=== PATIENT | male | born 1940 | race Caucasian/White ===

== ENCOUNTER → 2017-04-24 14:37 | Outpatient (CLI) | payer MEDICARE ==
[2015-10-04 20:20] VITALS: BMI 20.1
[~2017-04-24 14:37] MED LIST: ASA; ASPIRIN 81 MG E81 MG PO; BAYER CHEWABLE81 MG PO; BENICAR HCT 20-1 TA1 PO; BUPROPION HCL; CARDIZEM CD240 MG PO; CARDIZEM30 MG; CYMBALTA20 MG; CYMBALTA30 MG PO; Cardizem; Cardizem CD; Cymbalta; HCTZ; HYDROCHLOROTH12.5 M1; ISOSORBIDE MONO30 M1 PO; NORCO 10/325 TA1 TA1; NORCO 10/325 TA1 TA1 PO; Norco; PLAVIX75 MG PO; PRINIVIL10 MG PO; PROTONIX40 MG PO; WELLBUTRIN XL150 M1 PO; ZOCOR20 MG PO; ZOCOR5 MG; Zocor
== END | disposition home or self-care (01) ==
LOC: D.CT 14:37
DX: R04.2 Hemoptysis (principal)

== ENCOUNTER 2017-07-03 08:36 | Outpatient (CLI) | payer MEDICARE ==
[2015-10-04 20:20] VITALS: BMI 20.1
--- NOTE | ~2017-07-03 | HEMODYNAMI ---
PATIENT:ELISE HUNT MEDICAL RECORD: [id number] : 42 LOCATION:DPenelopeCAT ADMISSION DATE: 07/03/17 Generatedon:07/03/201711:27 Patient name: ELISE HUNT Patient #: [id number] SSN: : 1940 Date of study: 07/03/2017 Page: Of Hemodynamic Procedure Report Patient Data Patient Demographics Procedure consent was obtained First Name: ELISE Gender: Male Last Name: GILBERT : 1940 [facility] Initial: E Age: 76 year(s) Patient #: [id number] Race: Additional ID: [id number] Contact details [address]: [address] [place] [address] State: [place] City: [place] Zip code: [address] Past Medical History History of disease Date Diagnosis Comments Hypertension Allergies Allergen Reaction Date Comments Reported Sulfa drugs 01/28/2015 Iodine 01/28/2015 IV contrast dye 01/28/2015 Other allergy 07/03/2017 Iodine Admission Admission Data Admission Date: 07/03/2017 Admission Time: 8:36 Admit Source: Other Lab Results Lab Result Date: 07/03/2017 Lab Result Time: 9:10 Biochemistry Name Units Result Min Max BUN mg/dl 15 --(--*-)-- 7 18 Creatinine mg/dl 0.9 --(-*--)-- 0.6 1.3 CBC Name Units Result Min Max Hematocrit % 41.6 -*(----)-- 42 54 Hemoglobin g/dl 14.5 --(*---)-- 13.5 17.5 Procedure Procedure Types Cath Procedure Diagnostic Procedure LHC LHC w/Coronaries w/Grafts PCI Procedure PTCA PTCA Initial Miscellaneous Procedures Moderate Sedation up to 30 minutes Procedure Description Procedure Date Procedure Date: 07/03/2017 Procedure Start Time: 10:49 Procedure End Time: 11:27 Procedure Staff Name Function Randal Hartman MD Performing Physician Gray Oseguera RN Nurse Graeme Connor RT Monitor Shade De RT Scrub Procedure Data Cath Procedure Fluoroscopy Diagnostic fluoroscopy Total fluoroscopy Time: 14 time: 14 min min Diagnostic fluoroscopy Total fluoroscopy dose: dose: 395.18 mGy 395.18 mGy Contrast Material Contrast Material Type Amount (ml) Isovue 300 199 Entry Location Entry Primary Successful Side Size Upsize Upsize Entry Closure Succes sful Closure Location (Fr) 1 (Fr) 2 (Fr) Remarks Device Remarks Femoral Right 5 Fr 6 Fr Exoseal artery Short Estimated blood loss: 10 ml Diagnostic catheters Device Type Used For End Catheter Placement MULTIPACK Pigtail 5 Fr Procedure catheter MULTIPACK JL 4.0 5Fr Procedure catheter MULTIPACK 3DRC 5Fr Procedure catheter Procedure Complications No complications Procedure Medications Medication Administration Route Dosage Oxygen NC 2 l/min Heparin Flush Bag added to field 2 bags (1000units/500ml NS) 0.9% NaCl I.V. 100 ml/hr Fentanyl I.V. 50 mcg Versed I.V. 1 mg Fentanyl I.V. 50 mcg Versed I.V. 1 mg Heparin Bolus I.V. 4000 units Fentanyl I.V. 50 mcg Fentanyl I.V. 50 mcg Hemodynamics Rest HGB: 14.5 (g/dl) Heart Rate: 69 (bpm) Snapshots Pre Cath Intra NCS Post Cath Vital Signs Time Heart Resp SPO2 etCO2 NIBP (mmHg) Rhythm Pain Sedation Rate (ipm) (%) (mmHg) Status Level (bpm) 10:37:52 72 18 100 23.2 161/88(128) NSR 0 (11) 10(A) , No pain 10:42:12 69 17 100 24.7 159/82(122) NSR 0 (11) 10(A) , No pain 10:46:28 71 16 100 0.7 144/80(122) NSR 0 (11) 10(A) , No pain 10:50:42 70 19 94 0 137/76(113) NSR 0 (11) 9(A) , No pain 10:54:56 71 19 96 0 140/72(109) NSR 0 (11) 9(A) , No pain 10:59:10 70 19 100 4.4 136/75(109) NSR 0 (11) 9(A) , No pain 11:03:24 72 17 100 27.7 134/70(100) NSR 0 (11) 9(A) , No pain 11:07:36 72 19 100 0 138/75(116) NSR 0 (11) 9(A) , No pain 11:11:50 70 17 100 0 139/71(108) NSR 0 (11) 9(A) , No pain 11:16:04 74 17 100 27.7 140/75(114) NSR 0 (11) 9(A) , No pain 11:20:07 73 18 100 0 143/80(118) NSR 0 (11) 9(A) , No pain 11:24:20 82 9 100 10.4 151/88(116) NSR 0 (11) 9(A) , No pain Medications Time Medication Route Dose Verified Delivered Reason Notes Effectiveness by by 10:41:36 Oxygen NC 2 Randal Gray Per physician l/min Minnie Oseguera RN 10:41:44 Heparin Flush added 2 Randal Gray used for Bag to bags Minnie Oseguera RN procedure (1000units/500ml field NS) 10:41:54 0.9% NaCl I.V. 100 Randal Gray Per physician ml/hr Minnie Oseguera RN 10:47:26 Fentanyl I.V. 50 Randal Gray for sedation mcg Minnie Oseguera RN 10:47:36 Versed I.V. 1 mg Randal Gray for sedation Minnie Oseguera RN 10:53:02 Fentanyl I.V. 50 Randal Gray for sedation mcg Minnie Oseguera RN 10:53:07 Versed I.V. 1 mg Randal Gray for sedation Minnie Oseguera RN 10:57:44 Heparin Bolus I.V. 4000 Randal Gray for units Minnie Oseguera RN anticoagulation 11:09:49 Fentanyl I.V. 50 Randal Gray for sedation mcg Minnie Oseguera RN 11:12:55 Fentanyl I.V. 50 Randal Gray for sedation [facility] Minnie Oseguera RN Procedure Log Time Note 10:19:27 Gray Oseguera RN sent for patient. Start room use. 10:29:07 Informed consent obtained and on chart 10:29:10 Admit Source: Other 10:29:26 Diagnostic Cath status Elective 10:29:28 Time tracking: Regular hours 10:29:32 Plan of Care:Hemodynamics will remain stable., Cardiac rhythm will remain stable., Comfort level will be maintained., Respiratory function will remain adequate., Patient/ family verbilizes understanding of procedure., Procedure tolerated without complication., Recovers from procedure without complications.. 10:29:39 H&P Date Dictated: 07/02/2017 Within 30 days and on chart., H&P Addendum completed by physician on day of procedure. (MUST COMPLETE FOR ALL OUTPATIENTS). 10:30:47 Patient received from Pre/Post Procedure Room to [facility] 3 Alert and oriented. Tansferred to table in Supine position. 10:30:48 Warm blankets applied, and denise hugger turned on for patient comfort. 10:30:49 Correct patient and procedure confirmed by team. 10:30:49 ECG and BP/O2 sat monitors applied to patient. 10:36:40 Vital chart was started 10:41:36 Oxygen 2 l/min NC was administered by Gray Oseguera RN; Per physician; 10:41:44 Heparin Flush Bag (1000units/500ml NS) 2 bags added to field was administered by Gray Oseguera RN; used for procedure; 10:41:54 0.9% NaCl 100 ml/hr I.V. was administered by Gray Oseguera RN; Per physician; 10:42:19 Baseline sample Acquired. 10:42:22 Rhythm: sinus rhythm 10:42:23 Full Disclosure recording started 10:42:24 Pre-procedure instructions explained to patient. 10:42:24 Pre-op teaching completed and patient verbalized understanding. 10:42:26 Family in waiting room. 10:42:27 Patient NPO since Midnight. 10:42:34 Patient allergic to Other allergyIodine 10:42:37 Is the patient allergic to Iodine/contrast media? Yes. 10:42:38 Was the patient premedicated? Yes 10:42:38 Is patient on blood thinner?Yes 10:42:41 ACC The patient was administered the following blood thiners within the last 24 hours: ACCPlavix 10:42:45 Patient diabetic? No. 10:42:47 Previous problem with sedation/anesthesia? No ? 10:42:50 Snore? Yes 10:42:50 Sleep apnea? No 10:42:51 Deviated septum? No 10:42:52 Opens mouth fully? Yes 10:42:52 Sticks out tongue? Yes 10:42:55 Airway obstruction? Yes COPD 10:42:58 Dentures? Yes In tight 10:43:07 Pre procedure: right posterior tibial pulse 2+ Normal; easily identifiable; not easily obliterated 10:43:09 Patient pain scale 0/10 ?. 10:43:35 IV patent on arrival in left forearm with 0.9% NaCl at O. 10:44:34 Lab Result : Creatinine 0.9 mg/dl 10:44:34 Lab Result : BUN 15 mg/dl 10:44:34 Lab Result : Hemoglobin 14.5 g/dl 10:44:34 Lab Result : Hematocrit 41.6 % 10:44:37 Lab results completed and on chart. 10:44:41 Right groin area was prepped with chlora-prep and draped in sterile fashion 10:44:42 Alarms reviewed by R. N. 10:44:42 Sharps counted by scrub and verified by R.N. 10:44:45 Use device set Femoral Dx 10:44:47 ACIST Syringe (48100) opened to sterile field. 10:44:48 Medline Cath Pack ([id number]) opened to sterile field. 10:44:51 ACIST Hand Control (88524) opened to sterile field. 10:44:51 ACIST Manifold (73437) opened to sterile field. 10:44:53 Tegaderm 4 x 4 (1626W) opened to sterile field. 10:46:19 Bag Decanter (2002S) opened to sterile field. 10:46:20 PERCUTANEOUS ENTRY 19GA needle opened to sterile field. 10:46:23 DIAGNOSTIC Multipack 5Fr catheter set (CY2145) opened to sterile field. 10:46:24 DIAGNOSTIC WIRE .035 260cm J wire (784354) opened to sterile field. 10:46:25 SHEATH 5FR [place] (EEI071) opened to sterile field. 10:46:31 Physician arrived 10:46:31 --------ALL STOP TIME OUT------ 10:46:31 Final Timeout: patient, procedure, and site verified with staff and physician. All members of the team are in agreement. 10:46:33 Right groin site verified by team. 10:46:35 Physical assessment completed. ASA score P 2 - A patient with mild systemic disease as per Randal Hartman MD. 10:46:37 Sedation plan: IV Moderate Sedation Medication:Versed, Fentanyl 10:47:26 Fentanyl 50 mcg I.V. was administered by Gray Oseguera RN; for sedation; 10:47:36 Versed 1 mg I.V. was administered by Gray Oseguera RN; for sedation; 10:49:14 Procedure started. 10:49:17 Local anesthetic to right femoral artery with Lidocaine 2% by Randal Hartman MD.INITIAL ACCESS ONLY 10:49:23 A 5 Fr sheath was inserted into the Right Femoral artery 10:49:34 A MULTIPACK Pigtail 5 Fr catheter was advanced over the wire and used for Procedure. 10:49:38 LV gram done using ALFARO 10:49:40 Injector settings: Ml/sec: 10, Volume: 20, 10:49:49 EF : 50 % 10:50:25 Catheter exchanged over wire. 10:50:31 A MULTIPACK JL 4.0 5Fr catheter was advanced over the wire and used for Procedure. 10:51:17 LCA angiography performed. 10:51:53 Catheter exchanged over wire. 10:52:00 A MULTIPACK 3DRC 5Fr catheter was advanced over the wire and used for Procedure. 10:53:02 Fentanyl 50 mcg I.V. was administered by Gray Oseguera RN; for sedation; 10:53:07 Versed 1 mg I.V. was administered by Gray Oseguera RN; for sedation; 10:53:40 ALMONTE to LAD angiography performed. 10:53:56 RCA angiography performed. 10:56:04 SHEATH 6FR [place] (SUI561) opened to sterile field. 10:56:05 INFLATOR Merit BasixCompak (OE3827) opened to sterile field. 10:56:05 FIELDER XT J 300cm guide wire ([id number]) opened to sterile field. 10:56:06 GUIDE 6FR XBLAD 4.0 catheter ([id number]) opened to sterile field. 10:56:22 Zero performed for pressure channel P1 10:56:26 Zero performed for pressure channel P1 10:57:44 Heparin Bolus 4000 units I.V. was administered by Gray Oseguera RN; for anticoagulation; 10:59:22 Catheter removed. 10:59:31 Sheath upsized to a 6 Fr Short. 10:59:42 6 Fr xblad 3.5 guide catheter was inserted over the wire 11:00:54 fielder wire advanced. 11:04:22 Wire advanced across lesion. 11:05:19 The MAVERICK 1.5 X 15 balloon ([id number]) was advanced and then removed because of failure to cross lesion 11:05:21 Wire removed. 11:05:21 Guide catheter removed. 11:05:37 GUIDE 6FR EBU 4.5 catheter ([id number]) opened to sterile field. 11:05:47 6 Fr ebu 4.5 guide catheter was inserted over the wire 11:06:44 fielder wire advanced. 11:09:41 CHOICE PT Extra Support J 300cm guide wire ([id number]) opened to sterile field. 11:09:45 Wire removed. 11:09:49 Fentanyl 50 mcg I.V. was administered by Gray Oseguera RN; for sedation; 11:09:50 choice pt wire advanced. 11:10:57 Wire advanced across lesion. 11:11:13 Inflation number: 1 A MAVERICK 1.5 X 15 balloon ([id number]) was prepped and advanced across the 1st Diag, then inflated to 9 RONALD for 0:10 (min:sec). 11:12:27 Balloon removed over the wire. 11:12:55 Fentanyl 50 mcg I.V. was administered by Gray Oseguera RN; for sedation; 11:14:06 Inflation number: 2 A EUPHORA 1.5 x 15 Balloon ([id number]) was prepped and advanced across the 1st Diag, then inflated to 9 RONALD for 0:10 (min:sec). 11:14:16 Inflation number: 3 The EUPHORA 1.5 x 15 Balloon ([id number]) was reinflated across the 1st Diag, to 9 RONALD for 0:10 (min:sec). 11:14:47 Inflation number: 4 The EUPHORA 1.5 x 15 Balloon ([id number]) was reinflated across the 1st Diag, to 13 RONALD for 0:10 (min:sec). 11:15:23 Balloon removed over the wire. 11:15:23 Wire removed. 11:15:27 Guide catheter removed. 11:15:40 EXOSEAL 6Fr (EX600) opened to sterile field. 11:16:06 Sheath removed intact; hemostasis achieved with Exoseal to the Right Femoral artery. 11:16:08 Procedure ended.(Physican Out) 11:17:12 Fluoroscopy time 14.00 minutes. 11:17:20 Flurop Dose total: 395.18 11:17:20 Fluoroscopy dose: 395.18 mGy 11:17:24 Contrast amount:Isovue 300 199ml. 11:17:25 Sharps counted by scrub and verified by R.N. 11:17:27 Insertion/operative site no bleeding no hematoma. 11:17:29 Post-op/insertion site Right Femoral artery dressed using a 4 x 4 and Tegaderm. 11:17:33 Post right femoral artery:stable, soft, clean and dry 11:19:34 Post Procedure Pulses reassessed and unchanged 11:19:38 Post-procedure physical assessment completed. ASA score P 2 - A patient with mild systemic disease as per Randal Hartman MD. 11:19:40 Post procedure rhythm: unchanged. 11:19:42 Estimated blood loss: 10 ml 11:19:43 Post procedure instruction explained to patient.Patient verbalizes understanding. 11:19:43 Patient needs reinforcement of post procedure teaching. 11:19:59 Procedure type changed to Cath procedure, Diagnostic procedure, LHC, LHC w/Coronaries w/Grafts, PCI procedure, PTCA, PTCA Initial, Miscellaneous Procedures, Moderate Sedation up to 30 minutes 11:22:49 FEMSTOP Gold ([id number]) opened to sterile field. 11:23:07 Femstop placed over the right femoral artery at 180 mmHg. Hemostasis achieved. 11:27:06 Procedure and supply charges have been captured, reviewed, submitted and are correct. 11:27:08 Procedure Complication : No complications 11:27:10 Vital chart was stopped 11:27:10 See physician's report for complete and final results. 11:27:13 Report given to Pre/Post Procedure Room. 11:27:15 Patient transfered to Pre/Post Procedure Room with Stretcher. 11:27:16 Procedure ended. 11:27:16 Full Disclosure recording stopped 11:27:20 End room use (Document Last) Intervention Summary Intervention Notes Time ActionType Lesion and Equipment Action# Pressure Duration Attributes Used 11:05:19 Discard MAVERICK 1.5 Balloon X 15 balloon ([id number]) 11:11:13 Inflate 1st Diag MAVERICK 1.5 1 9 00:10 balloon X 15 balloon ([id number]) 11:14:06 Inflate 1st Diag EUPHORA 1.5 2 9 00:10 balloon x 15 Balloon ([id number]) 11:14:16 Reinflate 1st Diag EUPHORA 1.5 3 9 00:10 balloon x 15 Balloon ([id number]) 11:14:47 Reinflate 1st Diag EUPHORA 1.5 4 13 00:10 balloon x 15 Balloon ([id number]) Device Usage Item Name Manufacture Quantity Catalog Number Hospital Part Current Min imal Lot# / Charge Number Stock Stock Serial# Code ACIST Acist 1 21143 482886 866962 150936 20 Syringe Medical (14877) Systems Bvents Medline Cath Cardinal 1 [id number] 235656 74344 069610 5 Pack Health ([id number]) ACIST Hand Acist 1 55913 834944 592986 521768 5 Control Medical (96811) Systems Inc ACIST Acist 1 93644 643596 101019 068629 5 Manifold Medical (53449) Systems Inc Tegaderm 4 x 3M 1 1626W 104853 499310 594294 5 4 (1626W) Bag Decanter Microtek 1 2002S 068015 51931 813831 5 (2002S) Medical Inc. PERCUTANEOUS Cook Medical 1 F19667 916104 968269 5 ENTRY 19GA needle DIAGNOSTIC Cardinal 1 GB2653 876074 14562 762254 30 Multipack Health 5Fr catheter set (KG2240) DIAGNOSTIC St Cornelio 1 391793 580727 593188 393123 30 WIRE .035 260cm J wire (575578) SHEATH 5FR Terumo 1 SKM602 361249 449060 749280 40 [place] (QRI717) MULTIPACK Cardinal 1 487611 5 Pigtail 5 Fr Health catheter MULTIPACK JL Cardinal 1 602824 5 4.0 5Fr Health catheter MULTIPACK Cardinal 1 512411 5 3DRC 5Fr Health catheter SHEATH 6FR Terumo 1 ZFP866 053980 581646 289990 40 [place] (DNQ881) INFLATOR Merit 1 IO3794 222859 525788 081364 15 Heyzap BasixCompak (TT9608) FIELDER XT J Bales 1 [id number] 360841 419443 282406 5 300cm guide Vascular wire ([id number]) GUIDE 6FR Cardinal 1 60289678 407644 140558 186530 3 XBLAD 4.0 Health catheter (09310342) MAVERICK 1.5 [place] 1 [id number] 275510 806612 307397 1 [id number] X 15 balloon Scientific ([id number]) GUIDE 6FR Medtronic 1 [id number] 253804 10930 931280 0 EBU 4.5 catheter (MF5ZBR55) CHOICE PT [place] 1 [id number] 540227 971852 310562 5 Extra Scientific Support J 300cm guide wire ([id number]) EUPHORA 1.5 Medtronic 1 [id number] 507230 266019 907882 5 [id number] x 15 Balloon ([id number]) EXOSEAL 6Fr Cardinal 1 EX600 055824 899447 796548 10 (EX600) [facility] FEMST Gold [facility] Cornelio 1 B50444 059636 592053 242482 5 (S38955) Signature Audit Swink Stage Time Signature Unsigned Intra-Procedure 07/03/2017 Graeme Connor 11:27:34 AM RT(R) Signatures Monitor : Graeme Connor RT Signature : Date : Time : [id number] [place] [address]
[~2017-07-03 08:36] MED LIST changes: -PROTONIX40 MG PO
[2017-07-03 09:15] LABS: BASOPHILS 0.1 % (0-2); EOSINOPHILS 0.7 % (0-7); HEMATOCRIT 41.6 % (42.0-54.0); HEMOGLOBIN 14.5 g/dL (13.5-17.5); IMMATURE GRANULOCYTES 0.1 % (0-5); LYMPHOCYTES 10.7 % (15-50); MCH 32.2 pg (26.0-34.0); MCHC 34.9 g/dL (31.0-37.0); MCV 92.4 fL (80.0-100.0); MEAN PLATELET VOLUME 9.6 fL (7.4-10.4); MONOCYTES 2.3 % (2-11); NEUTROPHILS 86.1 % (40-80); PLATELET COUNT 265 10x3/uL (130-400); RDW 13.8 % (11.5-14.5); WBC 8.2 10x3/uL (4.8-10.8)
[2017-07-03] MEDS ORDERED: PROTONIX40 MG PO (09:18)
[2017-07-03 09:27] LABS: CALC OSMOLALITY 264 mosm/kg (275-300); CALCIUM 9.7 mg/dL (8.5-10.1); CARBON DIOXIDE 24.1 mmol/L (21.0-32.0); CHLORIDE - SERUM 98 mmol/L (98-107); CREATININE - SERUM 0.9 mg/dL (0.6-1.3); GLUCOSE 120 mg/dL (74-106); POTASSIUM - SERUM 3.9 mmol/L (3.5-5.1); SODIUM 131 mmol/L (136-145); UREA NITROGEN 15 mg/dL (7-18); eGFR NON AFRICAN AMERICAN 87 mL/min (90-120)
--- NOTE | 2017-07-03 11:50 | NUR ---
RIGHT GROIN 6F EXOSEAL CDI, NO BLEEDING OR HEMATOMA NOTED. FEMSTOP IN PLACE. ROOM AIR, NO RESP DISTRESS. NO C/O PAIN AT THIS TIME. VSS. FAMILY AT BEDSIDE, CALL LIGHT WITHIN REACH.
--- NOTE | 2017-07-03 12:20 | NUR ---
RIGHT GROIN 6F EXOSEAL CDI, NO BLEEDING OR HEMATOMA NOTED. ROOM AIR, NO RESP DISTRESS. C/O PAIN TO BACK AND RIGHT LEG. NOTIFED DR. AYALA.
--- NOTE | 2017-07-03 12:37 | NUR ---
NORCO 10 GIVEN PER MAR AND PT REQUEST. FEMSTOP PRESSURE DECREASED BY 40. NO BLEEDING NOTED.
--- NOTE | 2017-07-03 12:55 | NUR ---
FEMSTOP PRESSURE DECREASED BY 50. NO BLEEDING NOTED. VSS. WILL CONTINUE TO MONITOR CLOSELY.
--- NOTE | 2017-07-03 13:25 | NUR ---
REMAINING FEMSTOP PRESSURE REMOVED, DRESSING PLACED TO SITE. SANDWICH TRAY AND DRINK GIVEN, NO C/O NAUSEA. VSS. NO C/O PAIN. CALL LIGHT WITHIN REACH.
--- NOTE | 2017-07-03 15:00 | NUR ---
HOB ELEVATED 30 DEGREES. RIGHT GROIN 6F EXOSEAL CDI, NO BLEEDING NOTED. VSS. WILL CONTINUE TO MONITOR CLOSELY.
--- NOTE | 2017-07-03 15:15 | NUR ---
LEFT AC PIV D/C'D WITH CATHETER INTACT, BAND AID TO SITE. UP TO BEDSIDE TO GET DRESSED.
--- NOTE | 2017-07-03 15:22 | NUR ---
DISCHARGE INSTRUCTIONS GIVEN, VERBALIZED UNDERSTANDING.
--- NOTE | 2017-07-03 15:35 | NUR ---
TAKEN OUT VIA WHEELCHAIR BY CATH ORTHOPEDIC TECH. LEFT FACILITY WITH FAMILY AND ALL PERSONAL BELONGINGS.
--- NOTE | 2017-07-10 15:46 | OP ---
PATIENT NAME: ELISE HUNT MEDICAL RECORD: [id number] :42 LOCATION:D.CAT ADMISSION DATE: SURGEON: SCARLETT AYALA MD DATE OF OPERATION: 07/03/2017 PROCEDURES: 1. PTCA, LAD diagonal. 2. Left heart catheterization. 3. Selective coronary angiography. 4. Vein graft angiography. 5. ALMONTE angiography. INDICATION: Angina and coronary artery disease. PROCEDURE IN DETAIL: After informed consent was obtained and after a detailed explanation of the risks, benefits as well as alternative therapies, the patient elected to proceed with angiogram and angioplasty. The right femoral area was prepped and draped in normal sterile fashion. The right femoral artery was cannulated via modified Seldinger technique with placement of a 6-Cymro sheath. All catheters exchanged through this sheath. FINDINGS: The left ventriculogram was performed in standard 30-degree ALFARO view, reveals preserved cardiac wall motion, ejection fraction 50%. SELECTIVE CORONARY ANGIOGRAPHY: 1. Left main showed no significant angiographic disease. 2. Left anterior descending is totally occluded in the mid vessel, there is a LAD diagonal system that was previously grafted, but the graft was closed. This has a 99% stenosis at the ostium of this diagonal system. This is a relatively small diagonal system. 3. Left circumflex has mild irregularities, but no flow-limiting stenosis. 4. Right coronary artery has mild irregularities, but no flow-limiting stenosis. Previously placed stent is widely patent. PTCA OF THE LAD DIAGONAL: We were able to traverse this with a choice PT wire. Ballooning was undertaken with a 1.5 balloon. Result was 20% residual stenosis. OVERALL IMPRESSION: Successful percutaneous transluminal coronary angioplasty of the left anterior descending diagonal going from 99% initial stenosis to 20% residual stenosis. TRANSINT:[id number] Voice Confirmation ID: [id number] DOCUMENT ID: [id number] SCARLETT AYALA MD at 1546 CC: [id number] DICTATION DATE: 07/03/17 1121 RADIAL ARM SAW OPERATOR: 07/03/17 1155 DEP CLI 07/03/17 [place] [address]
== END 2017-07-03 15:35 | disposition home or self-care (01) ==
LOC: D.CATH 08:36
PROVIDERS: Internal Medicine Interventional Cardiology
DX: I25.119 Atherosclerotic heart disease of native coronary artery with unspecified angina pectoris (principal); F17.200 Nicotine dependence, unspecified, uncomplicated; I10 Essential (primary) hypertension; E78.5 Hyperlipidemia, unspecified; Z01.812 Encounter for preprocedural laboratory examination

== ENCOUNTER 2017-09-13 16:17 | Inpatient (IN) | payer MEDICARE ==
--- NOTE | ~2017-09-13 | EC ---
PATIENT:ELISE HUNT DATE OF SERVICE: 09/13/17 SEX: M MEDICAL RECORD: [id number] DATE OF : 42 LOCATION:D.M2 D.212 AGE OF PATIENT: 77 ADMISSION DATE: 09/13/17 REFERRING PHYSICIAN: INTERPRETING PHYSICIAN: MILDRED GUPTA MD ECHOCARDIOGRAM REPORT ECHO CHARGES 4 ECHO COMPLETE CLINICAL DIAGNOSIS: ST ELAVATION, HX CAD/CABG/STENTS ECHOCARDIOGRAPHIC MEASUREMENTS (adult normal given) AC root (d.<3.7cm) 3.6 cm LV Septum d (<1.2 cm> 2.2 cm Valve Excursion 1.9 cm LV Septum (systole) 2.8 cm Left Atria (s.<4.0cm> 3.8 cm LVPW d(<1.2cm) 2.1 cm RV (d.<2.3cm) 4.2 cm LVPW (sytole) 2.6 cm LV diastole(<5.6CM) 3.4 cm MV E-F(>70mm/sec) cm LV systole 1.3 cm LVOT Diameter 2.0 cm MV exc.(>10mm) cm Est.ejection fraction (50-75%) % Pericardial Effusion N DOPPLER: LVIT cm/sec A 105 cm/sec E 70.0 cm/sec LA cm/sec RVSP 26 mmHg LVOT 197 cm/sec AOP1/2T m/s Asc. Ao 194 cm/sec RVOT 146 cm/sec RA cm/sec PA 152 cm/sec AV Gradient Peak 15.05mmHg AV Mean 8.11 mmHg AV Area 2.9 cm MV Gradient Peak 6.99 mmHg MV Mean 2.26 mmHg MV Area cm COMMENTS: Agricultural Equipment Test Engineer: Margarita MELARA Mechanic Driver: 3 Dr. Garcia TAPE# DATE OF SERVICE: 09/15/2017 PROCEDURE: Transthoracic echocardiogram. FINDINGS: 1. Left ventricle is demonstrating asymmetric septal hypertrophy consistent with hypertrophic obstructive cardiomyopathy. The septal distance appears to be approximately 2.5 to 3 cm. 2. The left atrium is normal size, normal function. 3. The aortic valve is normal. ECHOCARDIOGRAM REPORT [id number] ELISE HUNT 4. The mitral valve shows chordal systolic anterior motion consistent with HOCM. 5. The tricuspid valve has mild tricuspid regurgitation. 6. The right ventricle is dilated. 7. The right atrium is dilated. IMPRESSION: The patient has evidence of hypertrophic obstructive cardiomyopathy TRANSINT:[id number] Voice Confirmation ID: [id number] DOCUMENT ID: [id number] MILDRED GUPTA MD at 1214 CC: [id number] DICTATION DATE: 09/16/17 1150 OPERATIONS CONSULTANT: 09/16/17 1200 DIS IN 09/15/17 [place] [id number] [place] [id number]
--- NOTE | ~2017-09-13 | EC ---
PATIENT:ELISE HUNT DATE OF SERVICE: 09/13/17 SEX: M MEDICAL RECORD: [id number] DATE OF : 42 LOCATION:D.M2 D.212 AGE OF PATIENT: 77 ADMISSION DATE: 09/13/17 REFERRING PHYSICIAN: INTERPRETING PHYSICIAN: HUDSON OHARA MD ECHOCARDIOGRAM REPORT ECHO CHARGES 4 ECHO COMPLETE CLINICAL DIAGNOSIS: ST ELAVATION, HX CAD/CABG/STENTS ECHOCARDIOGRAPHIC MEASUREMENTS (adult normal given) AC root (d.<3.7cm) 3.6 cm LV Septum d (<1.2 cm> 2.2 cm Valve Excursion 1.9 cm LV Septum (systole) 2.8 cm Left Atria (s.<4.0cm> 3.8 cm LVPW d(<1.2cm) 2.1 cm RV (d.<2.3cm) 4.2 cm LVPW (sytole) 2.6 cm LV diastole(<5.6CM) 3.4 cm MV E-F(>70mm/sec) cm LV systole 1.3 cm LVOT Diameter 2.0 cm MV exc.(>10mm) cm Est.ejection fraction (50-75%) % Pericardial Effusion N DOPPLER: LVIT cm/sec A 105 cm/sec E 70.0 cm/sec LA cm/sec RVSP 26 mmHg LVOT 197 cm/sec AOP1/2T m/s Asc. Ao 194 cm/sec RVOT 146 cm/sec RA cm/sec PA 152 cm/sec AV Gradient Peak 15.05mmHg AV Mean 8.11 mmHg AV Area 2.9 cm MV Gradient Peak 6.99 mmHg MV Mean 2.26 mmHg MV Area cm COMMENTS: Pump Assembler: 2 LISA MELARA Public Works Manager: 3 Dr. Garcia TAPE# DATE OF SERVICE: 09/14/2017 Adequate 2D echo, color flow and spectral Doppler, and M-mode. LVH is present. LV internal dimension is normal. Wall motion is normal. EF is greater than 55%. Aortic valve is tricuspid. No stenosis by Doppler interrogation. The left atrium is normal at 3.8 cm. Mitral valve shows no prolapse. Trace MR. Right-sided chamber is grossly normal. Trace TR. TRANSINT:[id number] Voice Confirmation ID: [id number] DOCUMENT ID: [id number] ECHOCARDIOGRAM REPORT [id number] ELISE HUNT,HUDSON Beyer MD at 0919 CC: [id number] DICTATION DATE: 09/14/17 142 PROPERTY PORTFOLIO OFFICER: 09/14/17 2330 DIS IN 09/15/17 [facility] [address] [facility] [place] [address]
--- NOTE | ~2017-09-13 | CN ---
PATIENT NAME:ELISE HUNT MEDICAL RECORD: [id number] : 42 LOCATION:[facility] D.2121 ADMIT DATE: 09/13/17 ACCOUNT: [id number] CONSULTING PHYSICIAN: HUDSON OHARA MD REFERRING PHYSICIAN: ALEX WETZEL MD DATE OF CONSULTATION: 09/14/2017 HISTORY OF PRESENT ILLNESS: A 77-year-old gentleman with a history of coronary artery disease, status post stenting approximately a month ago presents with about a month history of weakness and fatigue culminating in a ruma syncopal episode yesterday. He has had poor p.o. intake, chronic diarrhea, and nausea. He had a ruma syncopal episode at [place], had rarely somewhat atypical pain with this. ECG is without acute change. Cardiac enzymes are negative. He is hypokalemic and hyponatremic. We are seeing him for cardiovascular standpoint. PAST MEDICAL HISTORY: Includes: 1. History of coronary artery disease as described above. 2. Hyperlipidemia. 3. Gastroesophageal reflux disease. MEDICATIONS: Include Protonix 40 every day, potassium 10 every day, simvastatin 20 every day, lisinopril 20 every day, Plavix 75 every day. ALLERGIES: CONTRAST DYE, SULFA. SOCIAL HISTORY: Nonsmoker and nondrinker. Easily able to take care of his ADLs. No set exercise program. REVIEW OF SYSTEMS: The patient reports easy bruising but reports no swollen glands. The patient reports no fever, no night sweats, no significant weight gain, no significant weight loss. No significant exercise tolerance. The patient reports no dry eyes, no irritation, no vision change. Patient reports no difficulty hearing and no ear pain. Patient reports no frequent nose bleeds or nose and sinus problems. Patient reports on arm pain on exertion. No shortness of breath while lying down. No history of heart murmur. Patient reports no cough, no wheezing or coughing up blood. Patient reports no abdominal pain, no vomiting. Normal appetite. No diarrhea and not vomiting blood. No nausea and no constipation. Patient reports no incontinence. No difficulty urinating. No hematuria. No increased frequency. Patient reports no muscle aches. No weakness, no arthralgias, no back pain. No swelling of the extremities. Patient reports no abnormal mole, no jaundice, no rashes. Reports no loss of consciousness. No weakness and no numbness. No seizures, dizziness, or headaches. The patient reports no depression, no sleep disturbance, feeling safe in a relationship and no alcohol abuse. Patient reports on fatigue. Reports no runny nose or sinus pressure. No itching, no hives, and no frequent sneezing. PHYSICAL EXAMINATION: GENERAL: Somewhat of a chronically ill-appearing gentleman in no acute distress. VITAL SIGNS: Blood pressure 101/61, pulse 71 and regular. HEENT: Normocephalic, atraumatic. NECK: No JVD or bruit. HEART: Regular. LUNGS: Good air excursion. CONSULT REPORT [id number] ELISE HUNT ABDOMEN: Soft, nontender. EXTREMITIES: Pulses 2+. No edema. NEUROLOGIC: Grossly intact. IMPRESSION: Ruma syncope. This does not sound like a cardiovascular event. We will check echocardiographic studies to make sure he does not have the substrate for malignant arrhythmias. Carotid Dopplers have been ordered. Thank you for the consultation. TRANSINT:[id number] Voice Confirmation ID: [id number] DOCUMENT ID: [id number] HUDSON OHARA MD at 0919 CC: [id number] DICTATION DATE: 09/14/17 0941 OUTSOLE BEVELER: 09/14/17 1221 DIS IN 09/15/17 [id number] [place] [address]
[~2017-09-13 16:17] MED LIST changes: +PROTONIX40 MG PO
[2017-09-13 17:05] LABS: BASOPHILS 0.3 % (0-2); EOSINOPHILS 11.5 % (0-7); HEMATOCRIT 34.1 % (42.0-54.0); HEMOGLOBIN 12.3 g/dL (13.5-17.5); IMMATURE GRANULOCYTES 0.2 % (0-5); LYMPHOCYTES 20.3 % (15-50); MCH 32.7 pg (26.0-34.0); MCHC 36.1 g/dL (31.0-37.0); MCV 90.7 fL (80.0-100.0); MEAN PLATELET VOLUME 10.1 fL (7.4-10.4); MONOCYTES 11.8 % (2-11); NEUTROPHILS 55.9 % (40-80); RBC 3.76 10x6/uL (4.20-6.10); WBC 6.6 10x3/uL (4.8-10.8)
[2017-09-13 17:17] LABS: PLATELET COUNT 204 10x3/uL (130-400)
[2017-09-13 17:40] LABS: ALKALINE PHOSPHATASE 57 U/L (46-116); ALT (SGPT) 15 U/L (10-68); BILIRUBIN - TOTAL 0.23 mg/dL (0.2-1.3); CALC OSMOLALITY 242 mosm/kg (275-300); CALCIUM 8.2 mg/dL (8.5-10.1); CARBON DIOXIDE 26.3 mmol/L (21.0-32.0); CHLORIDE - SERUM 89 mmol/L (98-107); CKMB 3.2 U/L (0.0-3.6); CREATINE KINASE 104 UL (21-232); CREATININE - SERUM 0.7 mg/dL (0.6-1.3); GLUCOSE 98 mg/dL (74-106); PRO BNP 942 pg/mL (0-450); PROTEIN - SERUM 5.8 g/dL (6.4-8.2); SODIUM 122 mmol/L (136-145); TROPONIN-I 0.023 ng/mL (0.000-0.060); UREA NITROGEN 4 mg/dL (7-18); eGFR NON AFRICAN AMERICAN > 90 mL/min (90-120)
[2017-09-13 17:45] LABS: POTASSIUM - SERUM 2.6 mmol/L (3.5-5.1)
[2017-09-13 18:02] LABS: INR 1.13 (0.85-1.17); PROTIME 14.1 SECONDS (11.6-15.0)
[2017-09-13 18:43] LABS: APPEARANCE CLEAR (CLEAR); BILIRUBIN NEGATIVE (NEGATIVE); COLOR YELLOW (YELLOW); GLUCOSE NEGATIVE (NEGATIVE); KETONE NEGATIVE (NEGATIVE); NITRITE NEGATIVE (NEGATIVE); PROTEIN NEGATIVE (NEGATIVE); UROBILINOGEN NORMAL (NORMAL)
[2017-09-13 22:02] VITALS: BP 118/55
[2017-09-14] VITALS (7 sets, daily range): BP systolic 91–147; BP diastolic 45–63; BMI 19.4
[2017-09-14] MEDS ORDERED: MEGACE400 MG/10 PO (05:32)
[2017-09-14] MEDS ORDERED: POTASSIUM CHLO10 ME1 PO (05:32)
[2017-09-14 07:17] LABS: BASOPHILS 0.7 % (0-2); EOSINOPHILS 15.5 % (0-7); HEMATOCRIT 37.2 % (42.0-54.0); HEMOGLOBIN 13.4 g/dL (13.5-17.5); IMMATURE GRANULOCYTES 0.3 % (0-5); LYMPHOCYTES 24.2 % (15-50); MCH 32.9 pg (26.0-34.0); MCV 91.4 fL (80.0-100.0); MEAN PLATELET VOLUME 9.9 fL (7.4-10.4); NEUTROPHILS 49.3 % (40-80); PLATELET COUNT 217 10x3/uL (130-400); RBC 4.07 10x6/uL (4.20-6.10); RDW 12.2 % (11.5-14.5); WBC 7.1 10x3/uL (4.8-10.8)
[2017-09-14 07:27] LABS: CALC OSMOLALITY 256 mosm/kg (275-300); CALCIUM 8.3 mg/dL (8.5-10.1); CARBON DIOXIDE 23.8 mmol/L (21.0-32.0); CHLORIDE - SERUM 96 mmol/L (98-107); CREATININE - SERUM 0.7 mg/dL (0.6-1.3); GLUCOSE 87 mg/dL (74-106); SODIUM 130 mmol/L (136-145); UREA NITROGEN 5 mg/dL (7-18); eGFR NON AFRICAN AMERICAN > 90 mL/min (90-120)
[2017-09-14 07:38] LABS: POTASSIUM - SERUM 3.2 mmol/L (3.5-5.1)
[2017-09-14 17:30] LABS: MAGNESIUM - SERUM 1.9 mg/dL (1.8-2.4)
[2017-09-14 17:32] LABS: POTASSIUM - SERUM 3.8 mmol/L (3.5-5.1)
[2017-09-15 00:47] VITALS: BP 124/67
[2017-09-15 06:44] VITALS: BP 117/71
[2017-09-15 08:11] VITALS: BP 161/89
[2017-09-15 08:49] LABS: BASOPHILS 0.8 % (0-2); EOSINOPHILS 25.3 % (0-7); HEMATOCRIT 33.7 % (42.0-54.0); HEMOGLOBIN 11.8 g/dL (13.5-17.5); IMMATURE GRANULOCYTES 0.2 % (0-5); LYMPHOCYTES 20.1 % (15-50); MEAN PLATELET VOLUME 10.6 fL (7.4-10.4); MONOCYTES 9.8 % (2-11); NEUTROPHILS 43.8 % (40-80); PLATELET COUNT 183 10x3/uL (130-400); RBC 3.58 10x6/uL (4.20-6.10); RDW 12.7 % (11.5-14.5); WBC 6.1 10x3/uL (4.8-10.8)
[2017-09-15 08:51] LABS: MCV 94.1 fL (80.0-100.0)
[2017-09-15 09:02] LABS: ALBUMIN 2.7 g/dL (3.4-5.0); ALKALINE PHOSPHATASE 49 U/L (46-116); ALT (SGPT) 15 U/L (10-68); CALC OSMOLALITY 258 mosm/kg (275-300); CALCIUM 7.9 mg/dL (8.5-10.1); CARBON DIOXIDE 23.6 mmol/L (21.0-32.0); CHLORIDE - SERUM 100 mmol/L (98-107); CREATININE - SERUM 0.6 mg/dL (0.6-1.3); GLUCOSE 86 mg/dL (74-106); POTASSIUM - SERUM 3.8 mmol/L (3.5-5.1); PROTEIN - SERUM 5.1 g/dL (6.4-8.2); SODIUM 131 mmol/L (136-145); UREA NITROGEN 4 mg/dL (7-18); eGFR NON AFRICAN AMERICAN > 90 mL/min (90-120)
[2017-09-15 09:05] LABS: BILIRUBIN - TOTAL 0.08 mg/dL (0.2-1.3)
[2017-09-15 11:26] VITALS: BP 156/84
[2017-09-15] MEDS ORDERED: THERAGRAN M [BK1 TAB PO (11:46)
[2017-09-15] MEDS ORDERED: ATIVAN1 MG PO (13:20)
[2017-09-15] MEDS ORDERED: NICODERM C1 PATCH .1 TRANSDERM (13:20)
== END 2017-09-15 14:09 | disposition home or self-care (01) | DRG 312 ==
LOC: D.ER 16:17 → D.M2 21:03
PROVIDERS: Emergency Medicine; Internal Medicine Nephrology; Nurse Practitioner Family
DX: R55 Syncope and collapse (principal); E87.1 Hypo-osmolality and hyponatremia; E44.0 Moderate protein-calorie malnutrition; Z68.1 Body mass index [BMI] 19.9 or less, adult; I25.10 Atherosclerotic heart disease of native coronary artery without angina pectoris; K21.9 Gastro-esophageal reflux disease without esophagitis; E78.5 Hyperlipidemia, unspecified; I10 Essential (primary) hypertension; J44.9 Chronic obstructive pulmonary disease, unspecified; R19.7 Diarrhea, unspecified; E83.42 Hypomagnesemia; E87.6 Hypokalemia; G30.0 Alzheimer's disease with early onset; F02.80 Dementia in other diseases classified elsewhere, unspecified severity, without behavioral disturbance, psychotic disturbance, mood disturbance, and anxiety; F10.10 Alcohol abuse, uncomplicated; Z95.5 Presence of coronary angioplasty implant and graft; Z95.1 Presence of aortocoronary bypass graft; Z72.0 Tobacco use

== ENCOUNTER 2018-03-20 12:48 | Observation (INO) | payer MEDICARE ==
[~2018-03-20] VITALS: Ht 175.3 cm; Wt 61.7 kg
--- NOTE | ~2018-03-20 | CN ---
PATIENT NAME:ELISE HUNT MEDICAL RECORD: [id number] : 42 LOCATION:[facility] D.2138 ADMIT DATE: 03/20/18 ACCOUNT: [id number] CONSULTING PHYSICIAN: SCARLETT AYALA MD REFERRING PHYSICIAN: BRADLY THOMASON MD DATE OF CONSULTATION: 03/20/2018 ADMITTING DIAGNOSES: 1. Chest pain. 2. Shortness of breath. 3. Coronary artery disease. 4. Status post coronary bypass graft surgery. 5. Hypertension. 6. Hyperlipidemia. HISTORY OF PRESENT ILLNESS: Mr. Hunt presents with multiple complaints, generalized weakness, but he does have shortness of breath, some episodes of chest pain. The chest pain are atypical. He has fleeting sharp chest pain that lasts for only a second and goes from the right to the left nipple. He has been more short of breath lately, but this has been a progressive thing. We did the last angioplasty in June, which was a PTCA of a small branch vessel. His shortness of breath was persistent even after this. His EKG is normal. PHYSICAL EXAMINATION: GENERAL APPEARANCE: Well-nourished, well-developed, appears stated age. Level of distress, comfortable. PSYCHIATRIC: Mental status, alert, normal affect. Orientation, oriented to time, place and person. EYES: Lids and conjunctiva, noninjected. No discharge, no pallor. ENT: Lips, teeth, gums, normal dentition. Oropharynx, no cyanosis, no pallor. NECK: Carotid arteries, bilateral normal upstroke, no bruits, no thrills. JUGULAR VEINS: No jugular venous pressure or distention. CERVICAL LYMPH NODES: Nontender, nonenlarged. THYROID: Not enlarged. Nontender. No nodules. LUNGS: Respiratory effort, unlabored. CHEST: Normal curvature. No thoracic deformity. No chest wall tenderness. Percussion, resonant. Auscultation, clear. No wheezes, no rales, no rhonchi. CARDIOVASCULAR: Precordial exam, nondisplaced. No heaves or pericardial thrills. Rate and rhythm, regular. Heart sounds, normal S1, normal S2. No S3, no gallop, no rub. Systolic murmur, not heard. Diastolic murmur, not heard. EXTREMITIES: No cyanosis, no edema. Peripheral pulses, full and equal in all extremities, except as noted. No bruits appreciated. ABDOMEN: Soft, nondistended. Normal aorta. No bruit. Nontender. No masses. Liver, nontender, no hepatomegaly. Spleen, nontender, no splenomegaly. MUSCULOSKELETAL: No joint tenderness. No joint swelling. No erythema. NEUROLOGICAL: Normal gait, normal strength, normal tone. SKIN: Warm and dry. OVERALL IMPRESSION: Shortness of breath, unchanged after his last angioplasty. Chest pain that is totally atypical from a cardiac standpoint at this point. With a normal EKG at this point, no other cardiac workup or treatment is necessary. TRANSINT:[id number] Voice Confirmation ID: [id number] DOCUMENT ID: [id number] CONSULT REPORT [id number] ELISE HUNT, SCARLETT GRACE at 1950 CC: [id number] DICTATION DATE: 03/20/18 1534 PORCELAIN TURNER: 03/20/18 1626 DIS IN 03/21/18 [id number] [place] [address]
[~2018-03-20 12:48] MED LIST changes: +ATIVAN1 MG PO; +MEGACE400 MG/10 PO; +NICODERM C1 PATCH .1 TRANSDERM; +POTASSIUM CHLO10 ME1 PO; +THERAGRAN M [BK1 TAB PO
[2018-03-20] MEDS ORDERED: MYSOLINE250 MG PO (13:21)
[2018-03-20 13:30] VITALS: BP 105/56
[2018-03-20 13:48] LABS: BASOPHILS 0.2 % (0-2); EOSINOPHILS 2.9 % (0-7); HEMATOCRIT 33.6 % (42.0-54.0); IMMATURE GRANULOCYTES 0.1 % (0-5); LYMPHOCYTES 10.2 % (15-50); MCHC 35.7 g/dL (31.0-37.0); MCV 92.3 fL (80.0-100.0); MEAN PLATELET VOLUME 9.4 fL (7.4-10.4); MONOCYTES 5.7 % (2-11); NEUTROPHILS 80.9 % (40-80); PLATELET COUNT 217 10x3/uL (130-400); RBC 3.64 10x6/uL (4.20-6.10); RDW 13.4 % (11.5-14.5); WBC 10.3 10x3/uL (4.8-10.8)
[2018-03-20 14:14] LABS: ALBUMIN 3.1 g/dL (3.4-5.0); ALKALINE PHOSPHATASE 50 U/L (46-116); ALT (SGPT) 17 U/L (10-68); BILIRUBIN - TOTAL 0.25 mg/dL (0.2-1.3); CALC OSMOLALITY 268 mosm/kg (275-300); CALCIUM 8.3 mg/dL (8.5-10.1); CARBON DIOXIDE 22.1 mmol/L (21.0-32.0); CHLORIDE - SERUM 103 mmol/L (98-107); GLUCOSE 76 mg/dL (74-106); POTASSIUM - SERUM 3.3 mmol/L (3.5-5.1); PROTEIN - SERUM 5.8 g/dL (6.4-8.2); SODIUM 134 mmol/L (136-145); UREA NITROGEN 17 mg/dL (7-18); eGFR NON AFRICAN AMERICAN 77 mL/min (90-120)
[2018-03-20 14:28] LABS: CKMB 2.5 U/L (0.0-3.6); CREATINE KINASE 85 UL (21-232); PRO BNP 594 pg/mL (0-450); TROPONIN-I 0.025 ng/mL (0.000-0.060)
[2018-03-20 14:30] VITALS: BP 96/57
[2018-03-20 14:30] LABS: AMYLASE - SERUM 49 U/L (25-115); LIPASE 177 U/L (73-393)
[2018-03-20 14:46] LABS: APPEARANCE CLEAR (CLEAR); BILIRUBIN NEGATIVE (NEGATIVE); COLOR YELLOW (YELLOW); GLUCOSE NEGATIVE (NEGATIVE); KETONE NEGATIVE (NEGATIVE); NITRITE NEGATIVE (NEGATIVE); PROTEIN NEGATIVE (NEGATIVE); UROBILINOGEN NORMAL (NORMAL)
[2018-03-20 14:48] LABS: BACTERIA FEW /hpf (NONE SEEN); RED CELLS - URINE 0-5 /hpf (0-5)
[2018-03-20 16:00] VITALS: BP 110/57
[2018-03-20 17:30] VITALS: BP 99/63
[2018-03-20 19:18] LABS: CKMB 3.3 U/L (0.0-3.6); CREATINE KINASE 96 UL (21-232); TROPONIN-I 0.027 ng/mL (0.000-0.060)
[2018-03-20 20:41] VITALS: BP 116/61
[2018-03-21 01:09] LABS: CKMB 2.3 U/L (0.0-3.6); CREATINE KINASE 72 UL (21-232); TROPONIN-I 0.027 ng/mL (0.000-0.060)
[2018-03-21 04:56] VITALS: BP 142/71
[2018-03-21 07:36] VITALS: BP 116/61; BMI 20.1
[2018-03-21 08:10] LABS: ALBUMIN 3.3 g/dL (3.4-5.0); ALKALINE PHOSPHATASE 54 U/L (46-116); ALT (SGPT) 21 U/L (10-68); BILIRUBIN - TOTAL 0.38 mg/dL (0.2-1.3); CALC OSMOLALITY 264 mosm/kg (275-300); CALCIUM 8.8 mg/dL (8.5-10.1); CARBON DIOXIDE 24.1 mmol/L (21.0-32.0); CHLORIDE - SERUM 101 mmol/L (98-107); CKMB 2.3 U/L (0.0-3.6); CREATINE KINASE 60 UL (21-232); CREATININE - SERUM 0.8 mg/dL (0.6-1.3); GLUCOSE 84 mg/dL (74-106); POTASSIUM - SERUM 3.2 mmol/L (3.5-5.1); PROTEIN - SERUM 6.4 g/dL (6.4-8.2); SODIUM 133 mmol/L (136-145); TROPONIN-I 0.022 ng/mL (0.000-0.060); UREA NITROGEN 13 mg/dL (7-18); eGFR NON AFRICAN AMERICAN > 90 mL/min (90-120)
[2018-03-21 08:21] LABS: HEMATOCRIT 35.5 % (42.0-54.0); HEMOGLOBIN 12.8 g/dL (13.5-17.5); LYMPHOCYTES 20.3 % (15-50); MCH 33.3 pg (26.0-34.0); MCHC 36.1 g/dL (31.0-37.0); MCV 92.4 fL (80.0-100.0); MEAN PLATELET VOLUME 9.7 fL (7.4-10.4); NEUTROPHILS 71.2 % (40-80); PLATELET COUNT 232 10x3/uL (130-400); RBC 3.84 10x6/uL (4.20-6.10); RDW 13.9 % (11.5-14.5); WBC 5.8 10x3/uL (4.8-10.8)
[2018-03-21 09:23] VITALS: BP 108/52
[2018-03-21 12:59] VITALS: Ht 175.3 cm; Wt 61.7 kg
== END 2018-03-21 12:00 | disposition home or self-care (01) ==
LOC: D.ER 12:48 → D.EDHOLD 17:47 → OBSVTIME 18:00 → D.M2 19:23
PROVIDERS: Family Medicine
DX: R07.89 Other chest pain (principal); J44.9 Chronic obstructive pulmonary disease, unspecified; R53.1 Weakness; F03.90 Unspecified dementia, unspecified severity, without behavioral disturbance, psychotic disturbance, mood disturbance, and anxiety; I25.10 Atherosclerotic heart disease of native coronary artery without angina pectoris; Z95.1 Presence of aortocoronary bypass graft; Z72.0 Tobacco use; F10.10 Alcohol abuse, uncomplicated; E87.6 Hypokalemia; E44.0 Moderate protein-calorie malnutrition; Z68.20 Body mass index [BMI] 20.0-20.9, adult; E78.5 Hyperlipidemia, unspecified; I10 Essential (primary) hypertension

== ENCOUNTER 2018-05-14 20:23 | Emergency (ER) | payer MEDICARE ==
[~2018-05-14] VITALS: Ht 175.3 cm; Wt 72.7 kg
[~2018-05-14 20:23] MED LIST changes: +MYSOLINE250 MG PO
[2018-05-14 20:29] VITALS: Ht 175.3 cm; Wt 72.7 kg
[2018-05-14 21:31] LABS: BASOPHILS 0.2 % (0-2); EOSINOPHILS 1.5 % (0-7); HEMATOCRIT 38.6 % (42.0-54.0); HEMOGLOBIN 13.9 g/dL (13.5-17.5); IMMATURE GRANULOCYTES 0.2 % (0-5); LYMPHOCYTES 7.6 % (15-50); MCH 34.2 pg (26.0-34.0); MCV 94.8 fL (80.0-100.0); MEAN PLATELET VOLUME 9.3 fL (7.4-10.4); MONOCYTES 8.1 % (2-11); NEUTROPHILS 82.4 % (40-80); PLATELET COUNT 264 10x3/uL (130-400); RBC 4.07 10x6/uL (4.20-6.10); RDW 13.2 % (11.5-14.5); WBC 11.2 10x3/uL (4.8-10.8)
[2018-05-14 21:39] LABS: APTT 23.1 SECONDS (22.8-39.4); INR 1.07 (0.85-1.17); PROTIME 13.5 SECONDS (11.6-15.0)
[2018-05-14 21:56] LABS: ALBUMIN 3.4 g/dL (3.4-5.0); ALKALINE PHOSPHATASE 69 U/L (46-116); ALT (SGPT) 18 U/L (10-68); BILIRUBIN - TOTAL 0.21 mg/dL (0.2-1.3); CARBON DIOXIDE 23.4 mmol/L (21.0-32.0); CHLORIDE - SERUM 94 mmol/L (98-107); CKMB 13.3 U/L (0.0-3.6); CREATINE KINASE 180 UL (21-232); CREATININE - SERUM 1.1 mg/dL (0.6-1.3); MAGNESIUM - SERUM 1.8 mg/dL (1.8-2.4); PROTEIN - SERUM 6.9 g/dL (6.4-8.2); SODIUM 129 mmol/L (136-145); THYROID STIMULATING HORMONE 1.75 uIU/mL (0.36-3.74); TROPONIN-I 0.027 ng/mL (0.000-0.060); UREA NITROGEN 11 mg/dL (7-18); eGFR NON AFRICAN AMERICAN 69 mL/min (90-120)
[2018-05-14 21:58] LABS: CALC OSMOLALITY 259 mosm/kg (275-300); GLUCOSE 136 mg/dL (74-106)
[2018-05-14 21:59] LABS: POTASSIUM - SERUM 2.8 mmol/L (3.5-5.1)
[2018-05-14] MEDS ORDERED: K-DUR20 MEQ PO (22:38)
[2018-05-14 23:57] VITALS: BP 114/64
== END 2018-05-14 23:58 | disposition home or self-care (01) ==
LOC: D.ER 20:23
PROVIDERS: Emergency Medicine
DX: R55 Syncope and collapse (principal); E83.51 Hypocalcemia; R21 Rash and other nonspecific skin eruption; R53.81 Other malaise; F03.90 Unspecified dementia, unspecified severity, without behavioral disturbance, psychotic disturbance, mood disturbance, and anxiety; Z95.1 Presence of aortocoronary bypass graft; I10 Essential (primary) hypertension; J44.9 Chronic obstructive pulmonary disease, unspecified; N42.9 Disorder of prostate, unspecified; R00.1 Bradycardia, unspecified; I45.4 Nonspecific intraventricular block

== ENCOUNTER → 2018-11-13 09:41 | Outpatient (CLI) | payer MEDICARE ==
[2018-05-14 20:29] VITALS: BMI 23.6
--- NOTE | ~2018-11-13 | ST ---
PATIENT:ELISE HUNT MEDICAL RECORD: [id number] SEX: M LOCATION:[facility] ORDER #: ADMISSION DATE: 11/13/18 AGE OF PATIENT: 78 REFERRING PHYSICIAN: INTERPRETING PHYSICIAN: SCARLETT AYALA MD DATE OF SERVICE: 11/13/2018 PROCEDURE: Nuclear stress test. INDICATION: Angina, coronary artery disease, status post coronary artery bypass graft surgery, shortness of breath. He was exercised on standard Yadiel protocol for 5 minutes, terminated due to achievement of maximum target heart rate response and shortness of breath with 28 mCi of sestamibi injected at peak stress, 9 mCi were used previously for rest images. FINDINGS: Gated SPECT reveals a mildly depressed ejection fraction at 47% with good wall motion and thickening and brightening throughout all segments. SPECT imaging Cardiolite was used as myocardial perfusion agent. There are reversible changes inferiorly and apically. This includes the basal, mid apical inferior segments as well as the apex itself. The degree of reversibility is [id number]. The amount of myocardium involved is moderate. OVERALL IMPRESSION: 1. This is an abnormal nuclear stress test reversibility inferoapically. 2. Gated SPECT reveals preserved ejection fraction, but mildly depressed at 47% in this patient with ongoing symptomatology. The current scan does suggest the presence of recurrent hemodynamically significant coronary artery disease and/or graft failure. We will proceed with coronary angiography as followup study. TRANSINT:[id number] Voice Confirmation ID: [id number] DOCUMENT ID: [id number] SCARLETT AYALA MD CC: [id number] DICTATION DATE: 11/13/18 1625 COMMUNITY HEALTH DIRECTOR: 11/14/18 0722 DEP CLI 11/13/18 [id number] [place] [address]
--- NOTE | ~2018-11-13 | EC ---
PATIENT:ELISE HUNT DATE OF SERVICE: 11/13/18 SEX: M MEDICAL RECORD: [id number] DATE OF : 42 LOCATION:[facility] AGE OF PATIENT: 78 ADMISSION DATE: 11/13/18 REFERRING PHYSICIAN: INTERPRETING PHYSICIAN: SCARLETT HARTMAN MD ECHOCARDIOGRAM REPORT ECHO CHARGES 4 ECHO COMPLETE Date: 11/13/18 CLINICAL DIAGNOSIS: EDEMA/VEGA H/O CAD/HTN ECHOCARDIOGRAPHIC MEASUREMENTS (adult normal given) AC root (d.<3.7cm) 3.2 cm LV Septum d (<1.2 cm> 1.8 cm Valve Excursion 2.1 cm LV Septum (systole) 2.9 cm Left Atria (s.<4.0cm> 4.3 cm LVPW d(<1.2cm) 1.6 cm RV (d.<2.3cm) 2.0 cm LVPW (sytole) 2.1 cm LV diastole(<5.6CM) 5.1 cm MV E-F(>70mm/sec) cm LV systole 3.0 cm LVOT Diameter 1.9 cm MV exc.(>10mm) cm Est.ejection fraction (50-75%) % DOPPLER: LVIT cm/sec A 90.0 cm/sec E 70.0 cm/sec LA cm/sec RVSP 21.3 mmHg LVOT 125 cm/sec AOP1/2T m/s Asc. Ao 120 cm/sec RVOT 87.0 cm/sec RA cm/sec PA 90.0 cm/sec AV Gradient Peak 5.7 mmHg AV Mean 3.1 mmHg AV Area 3.4 cm MV Gradient Peak 4.5 mmHg MV Mean 1.1 mmHg MV Area cm COMMENTS: OP - HC Pulling Unit Operator: Dru CASTRO LIMA Director Business Intelligence: 1 Dr. Hartman TAPE# PACS Pericardial Effusion N DATE OF SERVICE: 11/13/2018 DATE OF SERVICE: 11/13/2018 FINDINGS: 1. Left ventricular chamber size is within normal limits. Left ventricular systolic function is mildly depressed. Overall ejection fraction is 40% to 45%. 2. Left atrium is enlarged at 4.3 cm. Right atrium and right ventricular chamber sizes are as well mildly dilated. 3. Valvular structure have normal structure and motion. ECHOCARDIOGRAM REPORT [id number] ELISE HUNT 4. Doppler interrogation reveals mild mitral regurgitation, mild tricuspid regurgitation, no other valvular insufficiency or stenosis. Pulmonary systolic pressure is estimated at 21 mmHg. 5. No evidence of pericardial effusion or left ventricular thrombus. TRANSINT:[id number] Voice Confirmation ID: [id number] DOCUMENT ID: [id number] SCARLETT HARTMAN MD CC: [id number] DICTATION DATE: 11/13/18 1614 SPANISH LITERATURE PROFESSOR: 11/13/18 1630 REG [facility] [address] [place] [address]
[~2018-11-13 09:41] MED LIST changes: +K-DUR20 MEQ PO
== END | disposition home or self-care (01) ==
LOC: D.HCCARDIO 11-04 10:00
PROVIDERS: ATTEND Internal Medicine Interventional Cardiology
DX: I25.810 Atherosclerosis of coronary artery bypass graft(s) without angina pectoris (principal)

== ENCOUNTER 2018-11-19 07:46 | Outpatient (CLI) | payer MEDICARE ==
[~2018-11-19] VITALS: Ht 175.3 cm; Wt 63.6 kg
--- NOTE | ~2018-11-19 | HEMODYNAMI ---
PATIENT:ELISE HUNT MEDICAL RECORD: [id number] : 42 LOCATION:[facility] ADMISSION DATE: 11/19/18 Generatedon:11/19/201810:09 Patient name: ELISE HUNT Patient #: [id number] SSN: : 1940 Date of study: 11/19/2018 Page: Of Hemodynamic Procedure Report Patient Data Patient Demographics Procedure consent was obtained First Name: ELISE Gender: Male Last Name: GILBERT : 1940 Middle Initial: E Age: 78 year(s) Patient #: [id number] Race: Additional ID: [id number] Contact details Address: [address] [place] [address] State: [place] City: [place] Zip code: [address] Past Medical History History of disease Date Diagnosis Comments Hypertension Allergies Allergen Reaction Date Comments Reported Sulfa drugs 01/28/2015 Iodine 01/28/2015 IV contrast dye 01/28/2015 Other allergy 07/03/2017 Iodine Admission Admission Data Admission Date: 11/19/2018 Admission Time: 7:46 Admit Source: Other Insurance Payor: Medicare Height (in.): 68.9 BSA: 1.77 (m2) Height (cm.): 175 BMI: 20.57 (kg/m2) Weight (lbs.): 138.89 Weight (kg.): 63 Lab Results Lab Result Date: 11/19/2018 Lab Result Time: 0:00 Biochemistry Name Units Result Min Max BUN mg/dl 13 --(--*-)-- 7 18 Creatinine mg/dl 0.9 --(-*--)-- 0.6 1.3 CBC Name Units Result Min Max Hemoglobin g/dl 13.4 -*(----)-- 13.5 17.5 Procedure Procedure Types Cath Procedure Diagnostic Procedure LHC LHC w/Coronaries w/Grafts FFR/IVUS FFR Initial Sedation Charges Moderate Sedation up to 15 minutes PCI Procedure PTCA PTCA Initial PTCA Additional Procedure Description Procedure Date Procedure Date: 11/19/2018 Procedure Start Time: 9:29 Procedure End Time: 10:02 Procedure Staff Name Function Randal Hartman MD Performing Physician Whit Tabor RN Nurse Seng Hemphill RN Development Chemist Candace Khan RT Monitor Odilia Saunders RT Scrub Procedure Data Cath Procedure Fluoroscopy Diagnostic fluoroscopy Total fluoroscopy Time: time: 13.7 min 13.7 min Diagnostic fluoroscopy Total fluoroscopy dose: dose: 1380 mGy 1380 mGy Contrast Material Contrast Material Type Amount (ml) Isovue 370 211 Entry Location Entry Primary Successful Side Size Upsize Upsize Entry Closure Succes sful Closure Location (Fr) 1 (Fr) 2 (Fr) Remarks Device Remarks Femoral Right 5 Fr 6 Fr Exoseal artery Short Estimated blood loss: 5 ml Diagnostic catheters Device Type Used For End Catheter Placement MULTIPACK Pigtail 5 Fr LV Angiography catheter MULTIPACK JL 4.0 5Fr Left Coronary catheter Angiography MULTIPACK 3DRC 5Fr Multi-vessel catheter Angiography Procedure Complications No complications Procedure Medications Medication Administration Route Dosage 0.9% NaCl I.V. 100 ml/hr Oxygen etCO2 Nasal cannula 2 l/min Lidocaine 2% added to field 20 Heparin Flush Bag added to field 2 bags (1000units/500ml NS) Versed I.V. 2 mg Fentanyl I.V. 50 mcg Versed I.V. 1 mg Fentanyl I.V. 25 mcg Heparin Bolus I.V. 4000 units Versed I.V. 1 mg Fentanyl I.V. 25 mcg Hemodynamics Rest BSA: 1.77 (m2) HGB: 13.4 (g/dl) O2 Consumption: Estimated: 210.42 (ml/min) O2 Co nsumption indexed: Estimated:118.88 (ml/min/m) Heart Rate: 81 (bpm) Pressure Samples Time Site Value (mmHg) Purpose Heart Use Rate(bpm) 9:32 LV 82/-1,4 Snapshot 83 Snapshots Pre Cath Intra NCS Post Cath Vital Signs Time Heart Resp SPO2 etCO2 NIBP (mmHg) Rhythm Pain Sedation Rate (ipm) (%) (mmHg) Status Level (bpm) 8:59:45 80 17 99 25 177/97(143) NSR 0 (11) 10(A) , No pain 9:04:07 75 15 100 13.4 173/82(132) NSR 0 (11) 10(A) , No pain 9:08:34 74 11 100 28 160/76(121) NSR 0 (11) 10(A) , No pain 9:12:49 74 11 98 25 150/76(121) NSR 0 (11) 10(A) , No pain 9:17:06 74 10 99 8.9 150/76(115) NSR 0 (11) 10(A) , No pain 9:21:22 73 12 99 23.8 152/79(120) NSR 0 (11) 10(A) , No pain 9:25:38 78 11 96 21.6 150/80(122) NSR 0 (11) 10(A) , No pain 9:29:54 77 11 97 25 149/78(119) NSR 0 (11) 9(A) , No pain 9:34:10 77 11 96 25.3 154/80(125) NSR 0 (11) 9(A) , No pain 9:38:26 79 11 96 26.1 132/83(116) NSR 0 (11) 9(A) , No pain 9:42:36 83 11 96 27.6 144/80(111) NSR 0 (11) 9(A) , No pain 9:46:51 83 12 96 25.3 145/76(120) NSR 0 (11) 9(A) , No pain 9:51:05 82 12 97 26.1 145/79(113) NSR 0 (11) 10(A) , No pain 9:55:15 84 12 97 30.2 163/92(139) NSR 0 (11) 9(A) , No pain 9:59:33 86 11 97 11.2 144/85(115) NSR 0 (11) 10(A) , No pain Medications Time Medication Route Dose Verified Delivered Reason Notes Effectiveness by by 8:58:45 0.9% NaCl I.V. 100 Randal Whit used for ml/hr Minnie Tabor roller coaster operator 8:58:51 Oxygen etCO2 2 Randal Whit used for Nasal l/min Minnie Tabor procedure cannula RN 8:58:57 Lidocaine 2% added 20ml Randal Tee for local to vial Minnie Hartman MD anesthetic field 8:59:01 Heparin Flush added 2 Randal Randal used for Bag to bags Minnie Hartman MD procedure (1000units/500ml field NS) 9:22:25 Versed I.V. 2 mg Randal Whit for sedation Minnie Tabor RN 9:22:34 Fentanyl I.V. 50 Randal Whit for sedation mcg Minnie Tabor RN 9:27:16 Versed I.V. 1 mg Randal Whit for sedation Minnie Tabor RN 9:28:23 Fentanyl I.V. 25 Randal Whit for sedation mcg Minnie Tabor RN 9:40:02 Heparin Bolus I.V. 4000 Randal Whit for verifi ed units Minnie Tabor anticoagulation with Dr. GOMEZ Hartman 9:53:54 Versed I.V. 1 mg Randal Whit for sedation Minnie Tabor RN 9:53:58 Fentanyl I.V. 25 Randal Whit for sedation mcg Minnie Tabor RN Procedure Log Time Note 8:43:32 Time tracking: Regular hours (M-F 7:00 - 5:00) 8:43:36 Plan of Care:Hemodynamics will remain stable., Cardiac rhythm will remain stable., Comfort level will be maintained., Respiratory function will remain adequate., Patient/ family verbilizes understanding of procedure., Procedure tolerated without complication., Recovers from procedure without complications.. 8:43:59 Seng Hemphill RN sent for patient. Start room use. 8:58:35 Vital chart was started 8:58:45 0.9% NaCl 100 ml/hr I.V. was administered by Whit Tabor RN; used for procedure; 8:58:51 Oxygen 2 l/min etCO2 Nasal cannula was administered by Whit Tabor RN; used for procedure; 8:58:57 Lidocaine 2% 20ml vial added to field was administered by Randal Hartman MD; for local anesthetic; 8:59:01 Heparin Flush Bag (1000units/500ml NS) 2 bags added to field was administered by Randal Hartman MD; used for procedure; 9:00:03 Patient received from Pre/Post Procedure Room to CCL 2 Alert and oriented. Tansferred to table in Supine position. 9:00:04 Warm blankets applied, and denise hugger turned on for patient comfort. 9:00:05 Correct patient and procedure confirmed by team. 9:00:06 Signed procedure consent form obtained from patient. 9:00:08 ECG and BP/O2 sat monitors applied to patient. 9:00:10 Baseline sample Acquired. 9:00:13 Rhythm: sinus rhythm 9:00:15 Full Disclosure recording started 9:00:18 H&P Date Dictated: 11/19/2018 Within 30 days and on chart., H&P Addendum completed by physician on day of procedure. (MUST COMPLETE FOR ALL OUTPATIENTS). 9:00:19 Pre-procedure instructions explained to patient. 9:00:20 Pre-op teaching completed and patient verbalized understanding. 9:00:21 Family in waiting room. 9:00:22 Patient NPO since Midnight. 9:00:25 Is the patient allergic to Iodine/contrast media? Yes. 9:00:32 Was the patient premedicated? Yes 9:00:33 Is patient on blood thinner?Yes 9:00:36 ACC The patient was administered the following blood thiners within the last 24 hours: ACCPlavix 9:00:40 Patient diabetic? No. 9:00:44 Previous problem with sedation/anesthesia? No ? 9:00:47 Snore? Yes 9:00:48 Sleep apnea? No 9:00:49 Deviated septum? No 9:00:51 Opens mouth fully? Yes 9:00:52 Sticks out tongue? Yes 9:00:58 Airway obstruction? No ? 9:01:09 Dentures? Yes partial 9:01:14 Pre procedure: right dorsailis pedis pulse 1+ Palpable, but thready & weak; easily obliterated 9:01:17 Pre procedure: left dorsailis pedis pulse 1+ Palpable, but thready & weak; easily obliterated 9:01:20 Patient pain scale 0/10 ?. 9:01:47 IV patent on arrival in right forearm with 0.9% NaCl at KVO. 9:01:58 Lab results completed and on chart. 9:02:02 Right groin area was prepped with chlora-prep and draped in sterile fashion 9:02:02 Alarms reviewed by R. N. 9:02:03 Sharps counted by scrub and verified by R.N. 9:21:12 Physician arrived 9:21:13 --------ALL STOP TIME OUT------ 9:21:14 Final Timeout: patient, procedure, and site verified with staff and physician. All members of the team are in agreement. 9:21:16 Right groin site verified by team. 9:21:20 Maximum allowable Isovue 300 dose 300ml. Physician notified. (300ml for normal creatinines. For patients with creatinine of 1.7 or higher multiply weight(kg) x 5 divided by creatinine.) 9:21:24 Fire Safety Assessment: A--An alcohol-based skin anteseptic being used preoperatively., C--Open oxygen or nitrous oxide is being used., D--An ESU, laser, or fiber-optic light is being used. 9:21:28 Physical assessment completed. ASA score P 2 - A patient with mild systemic disease as per Randal Hartman MD. 9:21:33 Sedation plan: IV Moderate Sedation Medication:Versed, Fentanyl 9:22:25 Versed 2 mg I.V. was administered by Whit Tabor RN; for sedation; 9::34 Fentanyl 50 mcg I.V. was administered by Whit Tabor RN; for sedation; 9:27:00 Lab Result : Hemoglobin 13.4 g/dl 9:27:00 Lab Result : Creatinine 0.9 mg/dl 9:27:00 Lab Result : BUN 13 mg/dl 9:27:04 Admit Source: Other 9:27:09 Patient Weight : 138.89 lbs 9:27:12 Patient Height : 68.9 inches 9:27:16 Versed 1 mg I.V. was administered by Whit Tabor RN; for sedation; 9:27:29 Insurance Payor : Medicare 9:28:23 Fentanyl 25 mcg I.V. was administered by Whit Tabor RN; for sedation; 9:28:46 Use device set Femoral Dx 9:28:47 ACIST Syringe (23224) opened to sterile field. 9:28:47 Bag Decanter (2002) opened to sterile field. 9:28:48 Medline Cath Pack ([id number]) opened to sterile field. 9:28:48 DIAGNOSTIC WIRE .035 260cm J wire (529152) opened to sterile field. 9:28:49 ACIST Hand Control (69432) opened to sterile field. 9:28:50 ACIST Manifold (19394) opened to sterile field. 9:28:50 DIAGNOSTIC Multipack 5Fr catheter set (ZB6309) opened to sterile field. 9:28:51 Tegaderm 4 x 4 (1626W) opened to sterile field. 9:28:52 SHEATH 5FR [place] (PSP847) opened to sterile field. 9:29:48 Procedure started. 9:29:56 Local anesthetic to right femoral artery with Lidocaine 2% by Randal Hartman MD.INITIAL ACCESS ONLY 9:30:06 A 5 Fr sheath was inserted into the Right Femoral artery 9:31:47 A MULTIPACK Pigtail 5 Fr catheter was advanced over the wire and used for LV Angiography. 9:32:06 LV hemodynamics recorded. 9:32:08 LV gram done using ALFARO 9:32:10 Injector settings: Ml/sec: 5, Volume: 15, 9:32:18 EF : 60 % 9:32:23 Catheter removed. 9:32:29 A MULTIPACK JL 4.0 5Fr catheter was advanced over the wire and used for Left Coronary Angiography. 9:33:43 LCA angiography performed. 9:33:46 Injector settings: Ml/sec: 3, Volume: 6, 9:36:11 Catheter removed. 9:36:21 A MULTIPACK 3DRC 5Fr catheter was advanced over the wire and used for Multi-vessel Angiography. 9:37:40 ALMONTE angiography performed. 9:38:16 RCA angiography performed. 9:38:18 Injector settings: Ml/sec: 3, Volume: 6, 9:38:24 Catheter removed. 9:38:25 Proceeding to intervention. 9:38:50 SHEATH 6FR [place] (YJJ677) opened to sterile field. 9:38:50 INFLATOR Merit BasixCompak (HZ8986) opened to sterile field. 9:38:51 [place] Verrata Plus pressure wire (60037F) opened to sterile field. 9:38:51 GUIDE 6FR XBLAD 3.5 catheter ([id number]) opened to sterile field. 9:39:57 Sheath upsized to a 6 Fr Short. 9:40:02 Heparin Bolus 4000 units I.V. was administered by Whit Tabor RN; for anticoagulation; verified with Dr. Hartman 9:40:07 6 Fr xblad 3.5 guide catheter was inserted over the wire 9:40:20 FFR/IFR wire advanced. 9:46:28 lcx lesion measured at 0.97 with IFR 9:47:49 IFR removed 9:47:57 choice pt wire advanced. 9:48:07 CHOICE PT Extra Support 182cm wire ([id number]) opened to sterile field. 9:50:05 Wire redirected to diagonal. 9:50:27 WHISPER 190cm wire ([id number]) opened to sterile field. 9:53:21 whisper wire removed 9:53:52 The EUPHORA 2.0 x 10 Balloon ([id number]) was advanced and then removed because of failure to cross lesion 9:53:54 Versed 1 mg I.V. was administered by Whit Tabor RN; for sedation; 9:53:58 Fentanyl 25 mcg I.V. was administered by Whit Tabor RN; for sedation; 9:55:28 Inflate balloon Inflation number: 1 A EUPHORA 1.5 x 12 balloon ([id number]) was prepped and advanced across the 1st Diag, then inflated to 13 RONALD for 0:10 (min:sec). 9:55:34 Inflation number: 2 The EUPHORA 1.5 x 12 balloon ([id number]) was reinflated across the 1st Diag, to 13 RONALD for 0:10 (min:sec). 9:56:37 Wire redirected to LAD. 9:57:20 Inflation number: 1 The EUPHORA 1.5 x 12 balloon ([id number]) was reinflated across the Mid LAD, to 13 RONALD for 0:10 (min:sec). 9:57:28 Inflation number: 2 The EUPHORA 1.5 x 12 balloon ([id number]) was reinflated across the Mid LAD, to 13 RONALD for 0:10 (min:sec). 9:58:09 Balloon removed over the wire. 9:59:10 Inflate balloon Inflation number: 3 A EUPHORA 2.0 x 10 Balloon ([id number]) was prepped and advanced across the Mid LAD, then inflated to 13 RONALD for 0:10 (min:sec). 9:59:27 Inflation number: 4 The EUPHORA 2.0 x 10 Balloon ([id number]) was reinflated across the Mid LAD, to 13 RONALD for 0:10 (min:sec). 9:59:34 Inflation number: 5 The EUPHORA 2.0 x 10 Balloon ([id number]) was reinflated across the Mid LAD, to 13 RONALD for 0:10 (min:sec). 10:00:23 Balloon removed over the wire. 10:00:36 Wire removed. 10:00:36 Guide catheter removed. 10:00:45 EXOSEAL 6Fr (EX600) opened to sterile field. 10:00:55 Sheath removed intact; hemostasis achieved with Exoseal to the Right Femoral artery. 10:00:59 Procedure ended.(Physican Out) 10:01:27 Fluoroscopy time 13.70 minutes. 10:01:30 Flurop Dose total: 1380 10:01:30 Fluoroscopy dose: 1380 mGy 10:01:41 Contrast amount:Isovue 370 211ml. 10:01:42 Sharps counted by scrub and verified by R.N. 10:01:43 Insertion/operative site no bleeding no hematoma. 10:01:47 Post-op/insertion site Right Femoral artery dressed using a 4 x 4 and Tegaderm. 10:01:50 Post right femoral artery:stable 10:01:51 Post Procedure Pulses reassessed and unchanged 10:01:53 Post procedure rhythm: unchanged. 10:01:56 Estimated blood loss: 5 ml 10:01:57 Post procedure instruction explained to patient.Patient verbalizes understanding. 10:01:57 Patient needs reinforcement of post procedure teaching. 10:02:31 Procedure type changed to Cath procedure, Diagnostic procedure, LHC, LHC w/Coronaries w/Grafts, FFR/IVUS, FFR Initial, Sedation Charges, Moderate Sedation up to 15 minutes, PCI procedure, PTCA, PTCA Initial, PTCA Additional 10:02:32 Procedure and supply charges have been captured, reviewed, submitted and are correct. 10:02:36 Procedure Complication : No complications 10:02:38 Vital chart was stopped 10:02:39 See physician's report for complete and final results. 10:02:47 Report given to Pre/Post Procedure Room. 10:02:50 Patient transfered to Pre/Post Procedure Room with Stretcher. 10:02:52 Procedure ended. 10:02:52 Full Disclosure recording stopped 10:03:00 ACC-PCI Only Patient was given prescriptions, or instructed by Randal Hartman MD to start/continue the following medications upon discharge: Plavix 10:03:01 End room use (Document Last) Intervention Summary Intervention Notes Time ActionType Lesion and Equipment Action# Pressure Duration Attributes Used 9:53:52 Discard EUPHORA Balloon 2.0 x 10 Balloon ([id number]) 9:55:28 Inflate 1st Diag EUPHORA 1 13 00:10 balloon 1.5 x 12 balloon ([id number]) 9:55:34 Reinflate 1st Diag EUPHORA 2 13 00:10 balloon 1.5 x 12 balloon ([id number]) 9:57:20 Reinflate Mid LAD EUPHORA 1 13 00:10 balloon 1.5 x 12 balloon ([id number]) 9:57:28 Reinflate Mid LAD EUPHORA 2 13 00:10 balloon 1.5 x 12 balloon ([id number]) 9:59:10 Inflate Mid LAD EUPHORA 3 13 00:10 balloon 2.0 x 10 Balloon ([id number]) 9:59:27 Reinflate Mid LAD EUPHORA 4 13 00:10 balloon 2.0 x 10 Balloon ([id number]) 9:59:34 Reinflate Mid LAD EUPHORA 5 13 00:10 balloon 2.0 x 10 Balloon ([id number]) Device Usage Item Name Manufacture Quantity Catalog Number [facility] Lot# / Charge Number Stock Stock Serial# Code ACIST Acist 1 70835 080536 105360 042368 20 Syringe Medical (95422) Systems Inc Bag Microtek 1 963547 53357 460812 5 Decanter Medical Inc. () Medline Medline 1 [id number] 304490 94792 564445 5 Cath Pack ([id number]) DIAGNOSTIC St Cornelio 1 205171 244727 539193 046857 30 WIRE .035 260cm J wire (026984) ACIST Hand Acist 1 44340 762420 628711 069625 5 Control Medical (84512) Systems Inc ACIST Acist 1 15947 726651 290760 353456 5 Manifold Medical (68305) Systems Inc DIAGNOSTIC Cardinal 1 UN3110 935204 04879 390833 30 Multipack Health 5Fr catheter set (HP0342) Tegaderm 4 3M 1 1626W 806249 928846 185203 5 x 4 (1626W) SHEATH 5FR Terumo 1 JBR627 710930 304246 876212 5 [place] (NKL805) MULTIPACK Cardinal 1 012174 5 Pigtail 5 Health Fr catheter MULTIPACK Cardinal 1 289820 5 JL 4.0 5Fr Health catheter MULTIPACK Cardinal 1 505607 5 3DRC 5Fr Health catheter SHEATH 6FR Terumo 1 IWW823 222685 273743 550164 40 [place] (CDI161) INFLATOR Merit 1 RR2060 417473 912484 486906 15 Merit Medical BasixCompak (DO8561) [place] 1 89258Y 257538 794425861 455239 5 Verrata Plus pressure wire (38155V) GUIDE 6FR Cardinal 1 06799543 110724 329847 016854 10 XBLAD 3.5 Health catheter (18733656) CHOICE PT Quinnesec 1 [id number] 220546 282015 460710 5 Extra Scientific Support 182cm wire ([id number]) WHISPER Bales 1 [id number] 452225 228432 607504 5 190cm wire Vascular (5336656PH) EUPHORA 2.0 Medtronic 1 [id number] 990614 870129 082790 5 [id number] x 10 Balloon ([id number]) EUPHORA 1.5 Medtronic 1 [id number] 390951 134867 132500 5 [id number] x 12 balloon ([id number]) EXOSEAL 6Fr Cardinal 1 EX600 114905 627561 871561 10 (EX600) Health Signature Audit Pitcher Stage Time Signature Unsigned Intra-Procedure 11/19/2018 Candace Khan 10:09:15 AM RT(R) Signatures Monitor : Candace Khan RT Signature : Date : Time : [facility] [address] [place] [address]
[2018-11-19 08:27] VITALS: BP 158/73; Ht 175.3 cm; Wt 63.6 kg
[2018-11-19 08:38] LABS: BASOPHILS 0.2 % (0-2); EOSINOPHILS 0 % (0-7); HEMATOCRIT 38.8 % (42.0-54.0); HEMOGLOBIN 13.4 g/dL (13.5-17.5); IMMATURE GRANULOCYTES 0.3 % (0-5); LYMPHOCYTES 8.8 % (15-50); MCH 32.2 pg (26.0-34.0); MCHC 34.5 g/dL (31.0-37.0); MCV 93.3 fL (80.0-100.0); MEAN PLATELET VOLUME 10.1 fL (7.4-10.4); MONOCYTES 1.6 % (2-11); NEUTROPHILS 89.1 % (40-80); PLATELET COUNT 293 10x3/uL (130-400); RBC 4.16 10x6/uL (4.20-6.10); WBC 6.2 10x3/uL (4.8-10.8)
[2018-11-19 08:44] LABS: CALC OSMOLALITY 267 mosm/kg (275-300); CALCIUM 9.4 mg/dL (8.5-10.1); CARBON DIOXIDE 26.4 mmol/L (21.0-32.0); CHLORIDE - SERUM 99 mmol/L (98-107); CREATININE - SERUM 0.9 mg/dL (0.6-1.3); GLUCOSE 126 mg/dL (74-106); POTASSIUM - SERUM 3.8 mmol/L (3.5-5.1); SODIUM 133 mmol/L (136-145); UREA NITROGEN 13 mg/dL (7-18); eGFR NON AFRICAN AMERICAN 87 mL/min (90-120)
--- NOTE | 2018-11-19 10:17 | NUR ---
PT ARRIVED BY STRETCHER. PLACED ON MONITORS. ASSESSMENT COMPLETED. FAMILY AT BEDSIDE.
--- NOTE | 2018-11-19 10:30 | NUR ---
PT CIRCUIT DESIGNER LIGHT. VOIDED APPROX 200 CC OF CLEAR YELLOW URINE IN URINAL. DENIES PAIN/NAUSEA. RESTING COMFORTABLY. VSS. RIGHT GROIN DRESSING C/D/I. NO S/S OF HEMATOMA NOTED.
--- NOTE | 2018-11-19 11:00 | NUR ---
PT RESTING COMFORTABLY. VSS. RIGHT GROIN DRESSING C/D/I. NO S/S OF HEMATOMA NOTED. FAMILY AT BEDSIDE. CALL LIGHT WITHIN REACH.
--- NOTE | 2018-11-19 11:30 | NUR ---
PT RESTING COMFORTABLY. RIGHT GROIN DRESSING C/D/I. NO S/S OF HEMATOMA NOTED. CALL LIGHT WITHIN REACH. VSS.
--- NOTE | 2018-11-19 11:55 | NUR ---
DR. AYALA ROUNDED AND SPOKE WITH PT AND PT'S FAMILY.
--- NOTE | 2018-11-19 12:39 | NUR ---
PT RESTING COMFORTABLY. FAMILY AT BEDSIDE. PT'S RIGHT GROIN DRESSING C/D/I. NO S/S OF HEMATOMA NOTED. VSS. CALL LIGHT WITHIN REACH.
--- NOTE | 2018-11-19 13:05 | NUR ---
HEAD OF BED INC TO 30 DEGREES. PT TOLERATED WELL. RIGHT GROIN DRESSING C/D/I. NO S/S OF HEMATOMA NOTED. PT SET UP WITH SPRITE AND SANDWICH TRAY AT THIS TIME. HE IS MORE ALERT AND VSS.
--- NOTE | 2018-11-19 13:45 | NUR ---
RIGHT AC PIV D/C'D WITH CATH TIP INTACT. DIME SIZED SKIN TEAR NOTED FROM TAPE REMOVAL. PLACED BANDAID OVER PER PT REQUEST. PT INSTRUCTED TO GET UP AND DRESSED AT THIS TIME.
--- NOTE | 2018-11-19 13:58 | NUR ---
DISCUSSED DISCHARGE INSTRUCTIONS WITH PT AND PT'S FAMILY. THEY VOICED UNDERSTANDING.
--- NOTE | 2018-11-19 14:00 | NUR ---
PT TAKEN OUT TO VEHICLE BY WHEELCHAIR. NO S/S OF DISTRESS NOTED. ALL BELONGINGS AND PAPERWORK IN HAND.
--- NOTE | 2018-11-21 16:41 | OP ---
PATIENT NAME: ELISE HUNT MEDICAL RECORD: [id number] :42 LOCATION:D.CAT ADMISSION DATE: SURGEON: SCARLETT AYALA MD DATE OF OPERATION: 11/19/2018 PROCEDURES: 1. PTCA of LAD diagonal. 2. Left heart catheterization. 3. Selective coronary angiography. 4. Vein graft angiography. 5. ALMONTE angiography. 6. IFR. PROCEDURE IN DETAIL: After informed consent was obtained and after detailed explanation of risks, benefits as well as alternative therapies, the patient elected to proceed with angiogram and angioplasty. The right femoral area was prepped and draped in normal sterile fashion. Right femoral artery was cannulated via modified Seldinger technique with placement of 6-Maltese sheath. All catheters exchanged through this sheath. FINDINGS: The left ventriculogram was performed in a standard 30-degree ALFARO view reveals preserved cardiac wall motion, ejection fraction 50% to 55%. SELECTIVE CORONARY ANGIOGRAPHY: 1. Left main is with no significant angiographic disease. 2. 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 Prior to this, there is a relatively large diagonal that has 99% stenosis at the ostium. 3. The left circumflex has a questionable stenosis in the mid vessel; however, iFR is normal. 4. ALMONTE to the distal LAD is widely patent. Distal LAD is diffusely diseased, but widely patent. 5. Vein graft to the circumflex is closed. 6. The right coronary has previously placed stents. These are widely patent with no significant restenosis. No disease elsewise throughout the RCA or its branches. PTCA OF THE LAD DIAGONAL: We were able to get a 1.5 and 2.0 balloon and this was extremely tortuous and calcified. No stent would cross this. We stopped with a balloon. The result was excellent. OVERALL IMPRESSION: Successful PTCA of LAD diagonal going from 99% initial stenosis to 0% residual. TRANSINT:[id number] Voice Confirmation ID: [id number] DOCUMENT ID: [id number] SCARLETT AYALA MD at 1641 CC: [id number] DICTATION DATE: 11/19/18 1004 AMBULATORY SERVICES REPRESENTATIVE: 11/19/18 1027 DEP CLI 11/19/18 [place] [id number]
== END 2018-11-19 14:00 | disposition home or self-care (01) ==
LOC: D.CATH 07:46
PROVIDERS: ATTEND Internal Medicine Interventional Cardiology
DX: I25.110 Atherosclerotic heart disease of native coronary artery with unstable angina pectoris (principal); R94.30 Abnormal result of cardiovascular function study, unspecified

== ENCOUNTER 2019-07-21 15:52 | Emergency (ER) | payer OTHER ==
[~2019-07-21] VITALS: Ht 175.3 cm; Wt 61.4 kg
[2019-07-21 15:56] VITALS: BP 115/54; Ht 175.3 cm; Wt 61.4 kg
[2019-07-21] MEDS ORDERED: SKELAXIN800 MG PO ×2 (17:23→17:25)
[2019-07-21] MEDS ORDERED: TORADOL10 MG PO ×2 (17:23→17:25)
== END 2019-07-21 18:22 | disposition home or self-care (01) ==
LOC: D.ER 15:52
DX: M47.816 Spondylosis without myelopathy or radiculopathy, lumbar region (principal); M47.817 Spondylosis without myelopathy or radiculopathy, lumbosacral region; R00.1 Bradycardia, unspecified; I25.119 Atherosclerotic heart disease of native coronary artery with unspecified angina pectoris; I10 Essential (primary) hypertension; Z95.1 Presence of aortocoronary bypass graft; J44.9 Chronic obstructive pulmonary disease, unspecified; Z72.0 Tobacco use

== ENCOUNTER 2020-10-27 17:19 | Emergency (ER) | payer OTHER ==
[~2020-10-27] VITALS: Ht 175.3 cm; Wt 61.8 kg
[~2020-10-27 17:19] MED LIST changes: +SKELAXIN800 MG PO; +TORADOL10 MG PO
[2020-10-27 17:34] VITALS: Ht 175.3 cm; Wt 61.8 kg
[2020-10-27] MEDS ORDERED: FLAGYL500 MG PO (17:36)
[2020-10-27] MEDS ORDERED: MYSOLINE 50 MG50 MG PO (17:36)
[2020-10-27] MEDS ORDERED: FLOMAX0.4 MG PO (17:36)
[2020-10-27] MEDS ORDERED: HYDROCHLOROTH12.5 M1 PO (17:37)
[2020-10-27] MEDS ORDERED: OTC PROBIOTIC (17:37)
[2020-10-27] MEDS ORDERED: CYMBALTA60 MG PO (17:37)
[2020-10-27] MEDS ORDERED: VISTARIL25 MG PO (17:38)
[2020-10-27 18:08] LABS: BASOPHILS 0.8 % (0-2); EOSINOPHILS 4.4 % (0-7); HEMOGLOBIN 13.9 g/dL (13.5-17.5); IMMATURE GRANULOCYTES 0.2 % (0-5); LYMPHOCYTE ABS# 1.33 10x3/uL (1.32-3.57); LYMPHOCYTES 21.8 % (15-50); MCH 31.2 pg (26.0-34.0); MCHC 34.8 g/dL (31.0-37.0); MCV 89.9 fL (80.0-100.0); MEAN PLATELET VOLUME 10.7 fL (7.4-10.4); MONOCYTES 11.7 % (2-11); NEUTROPHIL ABS# 3.72 10x3/uL (1.78-5.38); NEUTROPHILS 61.1 % (40-80); RBC 4.45 10x6/uL (4.20-6.10); RDW 13.4 % (11.5-14.5); WBC 6.1 10x3/uL (4.8-10.8)
[2020-10-27 18:11] LABS: PLATELET COUNT 234 10x3/uL (130-400)
[2020-10-27 18:28] LABS: APTT 28.5 SECONDS (22.8-39.4); INR 1.09 (0.85-1.17); PROTIME 13.1 SECONDS (11.6-15.0)
[2020-10-27 18:43] LABS: CALC OSMOLALITY 268 mosm/kg (275-300); CALCIUM 8.5 mg/dL (8.5-10.1); CHLORIDE - SERUM 101 mmol/L (98-107); POTASSIUM - SERUM 3.3 mmol/L (3.5-5.1); SODIUM 135 mmol/L (136-145); UREA NITROGEN 12 mg/dL (7-18); eGFR NON AFRICAN AMERICAN 76 mL/min (90-120)
[2020-10-27 18:48] LABS: ALBUMIN 3.1 g/dL (3.4-5.0); ALKALINE PHOSPHATASE 71 U/L (30-120); ALT (SGPT) 13 U/L (10-68); BILIRUBIN - TOTAL 0.19 mg/dL (0.2-1.3); PROTEIN - SERUM 6.4 g/dL (6.4-8.2)
[2020-10-27 18:49] LABS: GLUCOSE 78 mg/dL (74-106)
[2020-10-27] MEDS ORDERED: PROTONIX40 MG PO (20:15)
[2020-10-27 20:36] VITALS: BP 132/73
== END 2020-10-27 20:37 | disposition home or self-care (01) ==
LOC: D.ER 17:19
PROVIDERS: Family Medicine
DX: R19.7 Diarrhea, unspecified (principal); K92.1 Melena; I10 Essential (primary) hypertension; J44.9 Chronic obstructive pulmonary disease, unspecified; G30.9 Alzheimer's disease, unspecified; F02.80 Dementia in other diseases classified elsewhere, unspecified severity, without behavioral disturbance, psychotic disturbance, mood disturbance, and anxiety; Z72.0 Tobacco use